=== PATIENT | male | born 1995 | race Two or more races ===

== ENCOUNTER 2022-08-05 01:15 | Emergency (ER) | payer BC, OTHER ==
[~2022-08-05] VITALS: Ht 175.3 cm; Wt 93.0 kg
[2022-08-05] MEDS ORDERED: KETOROLAC TROMETH 60MG/2ML VIAL IM ONE (02:00)
[2022-08-05] MEDS ORDERED: IBUP-1456 PO (02:23)
[2022-08-05 02:54] VITALS: BP 150/101
== END 2022-08-05 04:15 | disposition home or self-care (01) ==
LOC: ER 01:15
DX: S63.602A Unspecified sprain of left thumb, initial encounter (principal); S63.502A Unspecified sprain of left wrist, initial encounter; X50.0XXA Overexertion from strenuous movement or load, initial encounter; Y93.89 Activity, other specified; Y92.89 Other specified places as the place of occurrence of the external cause; Y99.8 Other external cause status
CPT/HCPCS: 29125; 73090; 73110; 73130; 96372; 99284; J1885